=== PATIENT | female | born 1955 | race African-American/Black ===

== ENCOUNTER 2019-09-16 11:02 | Emergency (ER) | payer MEDICARE, OTHER, MEDICAID ==
[~2019-09-16] VITALS: Ht 162.6 cm; Wt 45.0 kg
[2019-09-16] MEDS ORDERED: KETOROLAC 30MG/ML VIAL IV STA (11:50)
[2019-09-16] MEDS ORDERED: LIDOCAINE 5% PATCH TOP SCH (12:00)
[2019-09-16] MEDS ORDERED: ONDANSETRON HCL 4MG/2ML INJ IV ONE (13:00)
[2019-09-16 13:31] LABS: BASOPHILS % 0.9 % (0.0-2.0); EOSINOPHILS % 2.3 % (0.0-5.0); HEMATOCRIT. 39.4 % (36.0-48.0); HEMOGLOBIN. 12.8 g/dL (12.0-16.0); LYMPHOCYTES % 23.3 % (20.0-50.0); MEAN CORPUSCULAR HEMOGLOBIN 26.9 pg (28.0-32.0); MEAN CORPUSCULAR VOLUME 82.8 fL (81.0-99.0); MEAN PLATELET VOLUME 9.7 fl (7.4-10.4); NEUTROPHILS % 66.5 % (40.0-76.0); PLATELET 174 x1000/uL (130-400); RED BLOOD CELL COUNT 4.76 mill/uL (4.2-5.4)
[2019-09-16 13:33] LABS: CHLORIDE 101 mEq/L (98-107)
[2019-09-16 13:34] LABS: PROTHROMBIN TIME 10.8 sec (9.6-11.0)
[2019-09-16 15:04] LABS: CLARITY URINE CLEAR (CLEAR); COLOR URINE YELLOW (YELLOW); KETONES URINE NEGATIVE (NEGATIVE); LEUKOCYTE ESTERASE URINE NEGATIVE (NEGATIVE); NITRITE URINE NEGATIVE (NEGATIVE); OCCULT BLOOD URINE NEGATIVE (NEGATIVE); PH URINE 7.5 (4.5-8.0); PROTEIN URINE NEGATIVE (NEGATIVE); UROBILINOGEN URINE 0.2 E.U./dL (0.2-1.0)
[2019-09-16] MEDS ORDERED: MORPHINE SULFATE 4 MG/ML CPJ (NOT FOR IM USE) IV ONE (15:30)
[2019-09-16] MEDS ORDERED: PREDNISONE 20MG TABLET PO ONE (18:15)
[2019-09-16] MEDS ORDERED: KETOROLAC 15MG/ML VIAL IV ONE (18:15)
[2019-09-16 18:48] VITALS: BP 112/61
[2019-09-16] MEDS ORDERED: VALACYCLOVIR HCL 500MG TABLET PO SCH (21:00)
== END 2019-09-16 18:50 | disposition home or self-care (01) ==
LOC: ER 11:02
DX: B02.9 Zoster without complications (principal); R11.0 Nausea; Z88.0 Allergy status to penicillin
CPT/HCPCS: 36415; 71045; 80053; 81003; 84484; 85025; 85610; 93005; 96374; 96375; 96376; 99285; J1885; J2405; J7512

== ENCOUNTER 2019-09-28 15:06 | Emergency (ER) | payer MEDICARE, OTHER ==
[~2019-09-28] VITALS: Ht 162.6 cm; Wt 48.0 kg
[2019-09-28] MEDS ORDERED: IBUPROFEN 600MG TABLET PO ONE (17:00)
[2019-09-28 18:59] VITALS: BP 135/78
== END 2019-09-28 19:00 | disposition home or self-care (01) ==
LOC: ER 15:06
DX: M25.572 Pain in left ankle and joints of left foot (principal); M25.571 Pain in right ankle and joints of right foot; B02.9 Zoster without complications; Z88.0 Allergy status to penicillin
CPT/HCPCS: 99282